=== PATIENT | male | born 1970 | race Caucasian/White ===

== ENCOUNTER 2021-03-25 20:58 | Inpatient (IN) | payer MEDICARE, MEDICAID ==
[~2021-03-25] VITALS: Ht 180.3 cm; Wt 104.5 kg
[~2021-03-25 20:58] MED LIST: etomidate 2mg/ml inj. ONE; rocuronium 10mg/ml inj IV ONE
[2021-03-25 22:00] LABS: EOSINOPHILS % (AUTO) 0 % (0-6); MEAN CORPUSCULAR HEMOGLOBIN 28.3 PG (27.0-31.0); MEAN PLATELET VOLUME 7.4 FL (7.4-10.4); MONOCYTES # (AUTO) 0.3 X10'3 (0-0.9); PLATELET COUNT 335 X10'3 (140-440)
[2021-03-25 22:02] LABS: BASOPHILS % (AUTO) 0.2 % (0-1); HEMATOCRIT 47.8 % (42.0-52.0); HEMOGLOBIN 15.9 g/dl (14.0-17.9); LYMPHOCYTES # (AUTO) 0.5 X10'3 (1.1-4.8); LYMPHOCYTES % (AUTO) 5.2 % (21-51); MEAN CORPUSCULAR HGB CONC 33.3 g/dL (33.0-36.5); MEAN CORPUSCULAR VOLUME 85.1 FL (78-98); NEUTROPHILS # (AUTO) 9.2 X10'3 (1.8-7.7); NEUTROPHILS % (AUTO) 91.6 % (42-75); RED BLOOD COUNT 5.62 X10'6 (4.70-6.10); RED CELL DISTRIBUTION WIDTH 13.9 % (11.5-14.5)
[2021-03-25 22:11] LABS: ALANINE AMINOTRANSFERASE 34 U/L (12-78); ALKALINE PHOSPHATASE 164 IU/L (46-116); ANION GAP 13 (8-16); ASPARTATE AMINO TRANSFERASE 36 U/L (10-37); BILIRUBIN,TOTAL 0.5 MG/DL (0.1-1.0); BLOOD UREA NITROGEN 20 MG/DL (7-18); BUN/CREATININE RATIO 17.2 (5.4-32.0); CALCIUM 9.5 MG/DL (8.5-10.1); CHLORIDE 100 MMOL/L (99-107); CREATININE 1.16 MG/DL (0.60-1.10); SODIUM 138 MMOL/L (135-145); TOTAL CARBON DIOXIDE 25.1 MMOL/L (24-32); eGFR 67 ML/MIN
[2021-03-25 22:32] LABS: ALBUMIN 1.8 G/DL (3.4-5.0); ALBUMIN/GLOBULIN RATIO 0.3 (1.1-1.5)
[2021-03-25 22:34] LABS: GLUCOSE 481 MG/DL (70-104)
[2021-03-25] MEDS ORDERED: insulin regular, human 10 units/0.1 ml syringe IV ONE (22:40)
[2021-03-25] MEDS ORDERED: magnesium 2GM in 50ml NS 50 ML IV PRN (23:45)
[2021-03-25] MEDS ORDERED: potassium Cl 40MEQ/1/2NS 520ml 520 ML IV PRN ×2 (23:45)
[2021-03-25] MEDS ORDERED: ondansetron/PF 4mg/2ml inj IV PRN (23:45)
[2021-03-25] MEDS ORDERED: magnesium Cl slow-release 64mg tablet PO PRN (23:45)
[2021-03-25] MEDS ORDERED: magnesium 4gm in 100ml NS 100 ML IV PRN (23:45)
[2021-03-25] MEDS ORDERED: potassium Cl 20 mEq SR tablet PO PRN ×2 (23:45)
[2021-03-25] MEDS ORDERED: acetaminophen 325mg tablet PO PRN (23:45)
[2021-03-25] MEDS ORDERED: mag hydrox/Alum hydrox/simeth 30ml oral suspension PO PRN (23:45)
[2021-03-25 23:51] LABS: PLATELET ESTIMATE NORMAL; TOTAL CELLS COUNTED 100
[2021-03-26] MEDS: normal saline 1000ml 1,000 ML IV SCH ×2 (00:12→21:09)
--- NOTE | 2021-03-26 00:22 | NUR ---
Patient in room ED 5. I have received report from JAYME Ignacio and had the opportunity to ask questions and assume patient care.
[2021-03-26 01:22] VITALS: BP 141/80
[2021-03-26] MEDS ORDERED: glucagon, human recombinant 1mg kit SUBCUT PRN (01:35)
[2021-03-26] MEDS ORDERED: MESSAGE TO PHARMACY PO ONE (01:35)
[2021-03-26] MEDS ORDERED: dextrose 50%-water 50ml dispensing syringe IV PRN ×2 (01:35)
[2021-03-26] MEDS ORDERED: dextrose ORAL solution 15 GM/59 ML bottle PO PRN ×2 (01:35)
--- NOTE | 2021-03-26 01:35 | NUR ---
Pt. was given Lantis after his blood sugar has been check since he came in the unit.Dr. Dash told me to do the protocol and Lantis 12 units hs.We will continue with pt. care.
[2021-03-26] MEDS: insulin Lispro (HumaLOG) vial - multi-dose SQ SCH ×4 (02:16→18:43)
[2021-03-26 03:01] LABS: HEMOGLOBIN A1C 13.3 % (4.5-6.2)
[2021-03-26] MEDS: K and/or MAG REPLACEMENT MC SCH ×2 (06:34→09:15)
--- NOTE | 2021-03-26 06:44 | NUR ---
Problems reprioritized. Patient report given, questions answered & plan of care reviewed with JAYME Monaco.
[2021-03-26] MEDS ORDERED: LISI20TA28 PO (07:07)
[2021-03-26] MEDS ORDERED: INSU100V9 SQ (07:08)
[2021-03-26] MEDS ORDERED: HUM7525 SQ (07:09)
[2021-03-26] MEDS ORDERED: CARV3.12 PO (07:09)
[2021-03-26] MEDS ORDERED: AMLO-140 PO (07:10)
[2021-03-26] MEDS ORDERED: ASPI-1264 PO (07:10)
[2021-03-26] MEDS ORDERED: ALBU0.63 IH (07:12)
[2021-03-26] MEDS ORDERED: HYDR-3972 PO (07:13)
[2021-03-26] MEDS ORDERED: TRAM50TA2 PO (07:15)
[2021-03-26] MEDS ORDERED: ATOR80TA PO (07:16)
[2021-03-26] MEDS ORDERED: HYDR12.55 PO (07:16)
--- NOTE | 2021-03-26 07:20 | NUR ---
Page Sent PAGER ID: [phone] MESSAGE: RE: Antonio Rasheed room 4006. May we have a sitter order please? Pt now has a sitter at bedside due to pulling lines/acute confusion
--- NOTE | 2021-03-26 07:33 | NUR ---
Page Sent PAGER ID: [phone] MESSAGE: re: jennifer Iqbal room 4006. Please address med rec for this pt.
--- NOTE | 2021-03-26 07:33 | NUR ---
Ordered speech evaluation due to patient's acute confusion and oxygen requirements.
[2021-03-26] MEDS ORDERED: enoxaparin 40mg/0.4ml syringe SUBCUT SCH (08:00)
[2021-03-26] MEDS: docusate sod 100mg capsule PO SCH ×2 (08:00→19:19)
--- NOTE | 2021-03-26 08:15 | NUR ---
Pt refusing bipap at this time. Sats between 79-83%. Will encourage proning.
[2021-03-26 08:45] LABS: BASOPHILS % (AUTO) 0.1 % (0-1); EOSINOPHILS % (AUTO) 0 % (0-6); HEMATOCRIT 41.5 % (42.0-52.0); HEMOGLOBIN 14.1 g/dl (14.0-17.9); LYMPHOCYTES # (AUTO) 0.7 X10'3 (1.1-4.8); LYMPHOCYTES % (AUTO) 5.9 % (21-51); MEAN CORPUSCULAR HEMOGLOBIN 28.3 PG (27.0-31.0); MEAN PLATELET VOLUME 7.4 FL (7.4-10.4); MONOCYTES # (AUTO) 0.6 X10'3 (0-0.9); MONOCYTES % (AUTO) 4.9 % (2-12); NEUTROPHILS # (AUTO) 11.3 X10'3 (1.8-7.7); NEUTROPHILS % (AUTO) 89.1 % (42-75); PLATELET COUNT 357 X10'3 (140-440); RED CELL DISTRIBUTION WIDTH 13.9 % (11.5-14.5); WHITE BLOOD COUNT 12.7 X10'3 (4.5-11.0)
--- NOTE | 2021-03-26 08:45 | NUR ---
Pt able to have some toast and water with no incidence of swallowing difficulty.
--- NOTE | 2021-03-26 08:51 | NUR ---
Diabetes consult: Pt admitted w/ increasing SOB and Covid w/ hx of DM per EMR. A1C 13.3 and Glu 388-481. Pt noted to have 60 units Lantus BID at home; also Dexamethasone daily. Pt w/ high oxygen demand, on 28L oxygen via HFNC, refusing BiPAP. Defer DM education at this time until pt more appropriate. Addendum: 03/26/21 at [address] Amended: Links added.
[2021-03-26] MEDS: dexamethasone 4mg tablet PO SCH ×2 (09:06→19:19)
[2021-03-26 09:28] LABS: ALBUMIN 1.6 G/DL (3.4-5.0); ANION GAP 10 (8-16); BLOOD UREA NITROGEN 24 MG/DL (7-18); BUN/CREATININE RATIO 24.7 (5.4-32.0); CALCIUM 8.9 MG/DL (8.5-10.1); CHLORIDE 102 MMOL/L (99-107); CREATININE 0.97 MG/DL (0.60-1.10); GLUCOSE 408 MG/DL (70-104); MAGNESIUM 2.5 MG/DL (1.5-2.4); POTASSIUM 4.5 MMOL/L (3.5-5.1); SODIUM 136 MMOL/L (135-145); TOTAL CARBON DIOXIDE 23.6 MMOL/L (24-32); eGFR 83 ML/MIN
--- NOTE | 2021-03-26 09:32 | NUR ---
Page Sent PAGER ID: [phone] MESSAGE: re: Antonioyoseph Iqbal room 4006. Can we give home inhaler and pain meds please? 03/15 pain and sats at 83%
[2021-03-26 10:00] VITALS: BP 148/83
[2021-03-26] MEDS ORDERED: AMLO5TAB PO (10:58)
[2021-03-26] MEDS ORDERED: ASPI-845 PO (10:58)
[2021-03-26] MEDS ORDERED: ALBU8HFA PO (10:58)
[2021-03-26] MEDS ORDERED: INSU100C4 SQ (10:58)
[2021-03-26 12:42] LABS: PLATELET ESTIMATE NORMAL; TOTAL CELLS COUNTED 100
[2021-03-26 12:44] LABS: TOXIC GRANULATION 1+
[2021-03-26 12:45] LABS: ANISOCYTOSIS FEW
[2021-03-26] MEDS: lisinopril 20mg tablet PO SCH (13:18)
[2021-03-26] MEDS: traMADol 50MG tablet PO PRN (13:58)
[2021-03-26 15:25] VITALS: BP 144/95
[2021-03-26] MEDS: carVEDilol 3.125mg tablet PO SCH (17:31)
[2021-03-26 18:00] VITALS: BP 144/88
--- NOTE | 2021-03-26 18:15 | NUR ---
Patient in room ORTHO 4006. I have received report from JAYME Monaco and had the opportunity to ask questions and assume patient care.
[2021-03-26] MEDS: atorvastatin 20mg tablet PO SCH (19:19)
[2021-03-26] MEDS ORDERED: insulin glargine (Lantus) pen - multi-dose SQ SCH (21:00)
[2021-03-26] MEDS: enoxaparin 40mg/0.4ml syringe SUBCUT SCH (21:07)
[2021-03-26] MEDS: CefTRIAXone 2gm/D5W 50ml BAG 50 ML IV SCH (21:25)
[2021-03-26 21:36] VITALS: BP 124/73
[2021-03-26] MEDS ORDERED: ringers solution, lactated 1000ml IV soln IV ONE (21:40)
[2021-03-26] MEDS ORDERED: ringers solution, lactated 500ml IV solution IV ONE (21:40)
[2021-03-26] MEDS ORDERED: insulin regular, human U-100 3ml vial - multi-dose IV ONE (21:40)
[2021-03-26] MEDS ORDERED: insulin glargine (Lantus) pen - multi-dose SQ ONE (21:40)
--- NOTE | 2021-03-26 22:30 | NUR ---
Pt.blood sugar was still high 425.Dr. Martinez gave me a order for LR bolus ,Humulin 8 units one time order and his home dose Lantis 30 units.We will continue with pt. care.
[2021-03-26] MEDS ORDERED: insulin regular, human 10 units/0.1 ml syringe IV ONE (22:35)
[2021-03-27 02:00] VITALS: BP 112/68
--- NOTE | 2021-03-27 02:00 | NUR ---
pt is actually on 80 liters oxygen via HF machine and 15 liters nrb mask per RT Addendum: 03/27/21 at 0236 by Lucia Andrade RN Amended: Links added.
--- NOTE | 2021-03-27 02:03 | NUR ---
RT was paged regarding his oxygen saturation dropping down to 75% on his pulse ox via the telemetry unit. He was on 60 liters oxygen and 100%fio2. RT bumped him up to 80 liters oxygen and still at 100%fio2 and his oxygen saturation is now 79-80% on pulse ox.
--- NOTE | 2021-03-27 06:19 | NUR ---
Problems reprioritized. Patient report given, questions answered & plan of care reviewed with JAYME Brady.
[2021-03-27] MEDS: aspirin 325mg tablet, delayed-release (Ecotrin) PO SCH (08:47)
[2021-03-27] MEDS: amLODIPine 5mg tablet PO SCH (08:52)
[2021-03-27] MEDS: dexamethasone 4mg tablet PO SCH ×2 (08:52→20:54)
[2021-03-27] MEDS: CefTRIAXone 2gm/D5W 50ml BAG 50 ML IV SCH (08:52)
[2021-03-27] MEDS: docusate sod 100mg capsule PO SCH ×2 (08:52→20:54)
[2021-03-27] MEDS: enoxaparin 40mg/0.4ml syringe SUBCUT SCH ×2 (08:53→20:54)
[2021-03-27] MEDS: lisinopril 20mg tablet PO SCH (08:56)
[2021-03-27] MEDS: carVEDilol 3.125mg tablet PO SCH ×2 (08:56→17:45)
[2021-03-27] MEDS: insulin Lispro (HumaLOG) vial - multi-dose SQ SCH ×3 (09:02→21:43)
[2021-03-27 09:04] LABS: BASOPHILS % (AUTO) 0.1 % (0-1); EOSINOPHILS % (AUTO) 0 % (0-6); HEMATOCRIT 38.8 % (42.0-52.0); LYMPHOCYTES # (AUTO) 0.7 X10'3 (1.1-4.8); LYMPHOCYTES % (AUTO) 5.7 % (21-51); MEAN CORPUSCULAR HEMOGLOBIN 28.1 PG (27.0-31.0); MEAN CORPUSCULAR HGB CONC 33.6 g/dL (33.0-36.5); MEAN CORPUSCULAR VOLUME 83.7 FL (78-98); MEAN PLATELET VOLUME 7.3 FL (7.4-10.4); MONOCYTES # (AUTO) 0.6 X10'3 (0-0.9); MONOCYTES % (AUTO) 5.3 % (2-12); NEUTROPHILS # (AUTO) 10.6 X10'3 (1.8-7.7); NEUTROPHILS % (AUTO) 88.9 % (42-75); PLATELET COUNT 381 X10'3 (140-440); RED BLOOD COUNT 4.64 X10'6 (4.70-6.10); RED CELL DISTRIBUTION WIDTH 13.3 % (11.5-14.5); WHITE BLOOD COUNT 11.9 X10'3 (4.5-11.0)
[2021-03-27] MEDS: insulin glargine (Lantus) pen - multi-dose SQ SCH ×2 (09:04→21:40)
[2021-03-27 09:29] LABS: ALBUMIN 1.6 G/DL (3.4-5.0); ANION GAP 9 (8-16); BLOOD UREA NITROGEN 28 MG/DL (7-18); BUN/CREATININE RATIO 26.7 (5.4-32.0); C-REACTIVE PROTEIN 2.29 MG/DL (0.0-0.5); CALCIUM 8.1 MG/DL (8.5-10.1); CHLORIDE 101 MMOL/L (99-107); CREATININE 1.05 MG/DL (0.60-1.10); GLUCOSE 427 MG/DL (70-104); MAGNESIUM 2.3 MG/DL (1.5-2.4); SODIUM 137 MMOL/L (135-145); TOTAL CARBON DIOXIDE 26.6 MMOL/L (24-32); eGFR 75 ML/MIN
[2021-03-27 10:00] VITALS: BP 106/70
[2021-03-27 10:21] LABS: D-DIMER 2.13 MG/L FEU (0-0.50)
[2021-03-27 10:30] LABS: PLATELET ESTIMATE NORMAL; TOTAL CELLS COUNTED 100
[2021-03-27 10:31] LABS: BURR CELLS FEW
[2021-03-27] MEDS: K and/or MAG REPLACEMENT MC SCH ×2 (11:18→20:00)
[2021-03-27 18:00] VITALS: BP 112/71
[2021-03-27] MEDS: atorvastatin 20mg tablet PO SCH (20:53)
[2021-03-27] MEDS: lactobacillus rhamnosus 10,000 MMU CELLS/CAPSULE PO SCH (20:54)
[2021-03-27 22:00] VITALS: BP 114/67
[2021-03-28] MEDS: normal saline 1000ml 1,000 ML IV SCH (00:13)
[2021-03-28 02:00] VITALS: BP 119/69
[2021-03-28] MEDS: docusate sod 100mg capsule PO SCH ×2 (08:00→19:46)
[2021-03-28 08:21] LABS: BASOPHILS % (AUTO) 0 % (0-1); EOSINOPHILS % (AUTO) 0 % (0-6); HEMATOCRIT 36.7 % (42.0-52.0); HEMOGLOBIN 12.4 g/dl (14.0-17.9); LYMPHOCYTES # (AUTO) 0.6 X10'3 (1.1-4.8); LYMPHOCYTES % (AUTO) 4.5 % (21-51); MEAN CORPUSCULAR HEMOGLOBIN 28.2 PG (27.0-31.0); MEAN CORPUSCULAR HGB CONC 33.8 g/dL (33.0-36.5); MEAN CORPUSCULAR VOLUME 83.5 FL (78-98); MEAN PLATELET VOLUME 7.3 FL (7.4-10.4); MONOCYTES # (AUTO) 0.6 X10'3 (0-0.9); MONOCYTES % (AUTO) 4.9 % (2-12); NEUTROPHILS # (AUTO) 11.6 X10'3 (1.8-7.7); NEUTROPHILS % (AUTO) 90.6 % (42-75); PLATELET COUNT 342 X10'3 (140-440); RED CELL DISTRIBUTION WIDTH 13.4 % (11.5-14.5); WHITE BLOOD COUNT 12.8 X10'3 (4.5-11.0)
[2021-03-28] MEDS: enoxaparin 40mg/0.4ml syringe SUBCUT SCH ×2 (08:46→19:49)
[2021-03-28] MEDS: CefTRIAXone 2gm/D5W 50ml BAG 50 ML IV SCH (08:46)
[2021-03-28] MEDS: carVEDilol 3.125mg tablet PO SCH ×2 (08:47→17:52)
[2021-03-28] MEDS: dexamethasone 4mg tablet PO SCH ×2 (08:47→19:47)
[2021-03-28] MEDS: aspirin 325mg tablet, delayed-release (Ecotrin) PO SCH (08:47)
[2021-03-28] MEDS: lisinopril 20mg tablet PO SCH (08:47)
[2021-03-28] MEDS: amLODIPine 5mg tablet PO SCH (08:47)
[2021-03-28] MEDS: lactobacillus rhamnosus 10,000 MMU CELLS/CAPSULE PO SCH ×2 (08:48→19:47)
[2021-03-28 08:54] LABS: BLOOD UREA NITROGEN 31 MG/DL (7-18); BUN/CREATININE RATIO 34.4 (5.4-32.0); C-REACTIVE PROTEIN 1.06 MG/DL (0.0-0.5); CHLORIDE 102 MMOL/L (99-107); GLUCOSE 353 MG/DL (70-104); POTASSIUM 4.7 MMOL/L (3.5-5.1); eGFR 90 ML/MIN
[2021-03-28 08:56] LABS: ALBUMIN 1.5 G/DL (3.4-5.0); ANION GAP 9 (8-16); CALCIUM 8.2 MG/DL (8.5-10.1); MAGNESIUM 2.5 MG/DL (1.5-2.4); SODIUM 135 MMOL/L (135-145); TOTAL CARBON DIOXIDE 24.2 MMOL/L (24-32)
[2021-03-28 09:03] LABS: TOTAL CELLS COUNTED 100
[2021-03-28 09:04] LABS: MICROCYTOSIS 1+; PLATELET ESTIMATE NORMAL
[2021-03-28 09:10] LABS: D-DIMER 1.99 MG/L FEU (0-0.50)
[2021-03-28] MEDS: insulin glargine (Lantus) pen - multi-dose SQ SCH ×2 (09:39→22:43)
[2021-03-28] MEDS: insulin Lispro (HumaLOG) vial - multi-dose SQ SCH ×4 (09:40→22:44)
[2021-03-28] MEDS: K and/or MAG REPLACEMENT MC SCH ×2 (09:51→20:00)
[2021-03-28 10:00] VITALS: BP 147/83
[2021-03-28 14:00] VITALS: BP 124/77
--- NOTE | 2021-03-28 17:24 | NUR ---
pt rested in room throughout shift. During AM assessment pt stated suicidal ideations. MD made aware and patient placed with sitter for safety. Sitter remained with pt throughout the day. During Evening assessment pt complained of c/p and back pain. EKG performed and results of EKG interpreted by ER , Pts attending MD Contreras made aware of patients complaint. Stat Troponin lab ordered and drawn for patient, and sublingual Nitroglycerin PRN ordered for pt. Will continue to monitor patient and will notify MD with any changes in patients conditions. Addendum: 03/28/21 at 1759 by Caitlyn Painting RN Troponin resulted negative <0.04.
[2021-03-28] MEDS ORDERED: nitroGLYCERIN 0.4mg SUBLingual tab SL PRN (17:35)
[2021-03-28 18:00] VITALS: BP 122/71
[2021-03-28] MEDS: atorvastatin 20mg tablet PO SCH (21:00)
[2021-03-28 22:00] VITALS: BP 139/77
[2021-03-28] MEDS: traMADol 50MG tablet PO PRN (22:45)
--- NOTE | 2021-03-29 01:30 | NUR ---
LOW SATURATION NOTED 82% WITH INCREASED RESP RATE OF 28. NO SIGNS OF DISTRESS NOTED. REPARATORY NOTIFIED FOR TREATMENT.
[2021-03-29] MEDS: ipratropium/albuterol 3ml nebule NEB PRN (01:49)
--- NOTE | 2021-03-29 02:19 | NUR ---
Pt post respiratory treatment , saturating 88% with resp rate 22; continue to monitor pt's respiratory status.
[2021-03-29 02:22] VITALS: BP 127/70
[2021-03-29] MEDS: normal saline 1000ml 1,000 ML IV SCH (03:53)
[2021-03-29 03:59] LABS: CLARITY,URINE CLEAR (Clear); COLOR,URINE YELLOW (Yellow); GLUCOSE, URINE >=1000 mg/dl (Neg); KETONES,URINE NEGATIVE (Neg); LEUKOCYTE ESTERASE ,URINE NEGATIVE (Neg); NITRITES, URINE NEGATIVE (Neg); OCCULT BLOOD,URINE NEGATIVE (Neg); PROTEIN,URINE >=300 mg/dl (Neg); UA COLLECTION TYPE NON-SPECIFIED; UROBILINOGEN,URINE 0.2 E.U/dL (0.2-1.0)
[2021-03-29 04:12] LABS: BACTERIA,URINE NONE SEEN /HPF (Neg); MUCUS STRANDS MANY /LPF (Neg); RBC,URINE NONE SEEN /HPF (0-2); SQUAMOUS EPITHELIAL CELL,UR FEW /LPF (FEW); WBC,URINE 0-4 /HPF (0-4); YEAST FEW /HPF (NEGATIVE)
[2021-03-29 04:13] LABS: HYALINE CASTS 0-3 /LPF (NEGATIVE)
[2021-03-29 04:14] LABS: CAL OXALATE CRYSTALS 1+ /HPF (NEGATIVE)
[2021-03-29 05:00] VITALS: BP 133/73
--- NOTE | 2021-03-29 06:10 | NUR ---
Problems reprioritized. Patient report given, questions answered & plan of care reviewed with Ms. Brady.
[2021-03-29 08:30] LABS: BASOPHILS % (AUTO) 0.2 % (0-1); EOSINOPHILS % (AUTO) 0 % (0-6); HEMATOCRIT 39.7 % (42.0-52.0); HEMOGLOBIN 13.5 g/dl (14.0-17.9); LYMPHOCYTES # (AUTO) 0.5 X10'3 (1.1-4.8); LYMPHOCYTES % (AUTO) 3.5 % (21-51); MEAN CORPUSCULAR HEMOGLOBIN 28.3 PG (27.0-31.0); MEAN CORPUSCULAR VOLUME 83.3 FL (78-98); MEAN PLATELET VOLUME 7.1 FL (7.4-10.4); MONOCYTES # (AUTO) 0.7 X10'3 (0-0.9); NEUTROPHILS # (AUTO) 12.2 X10'3 (1.8-7.7); NEUTROPHILS % (AUTO) 91.3 % (42-75); PLATELET COUNT 386 X10'3 (140-440); RED BLOOD COUNT 4.76 X10'6 (4.70-6.10); RED CELL DISTRIBUTION WIDTH 13.5 % (11.5-14.5); WHITE BLOOD COUNT 13.4 X10'3 (4.5-11.0)
[2021-03-29 08:44] LABS: ALBUMIN 1.8 G/DL (3.4-5.0); ANION GAP 8 (8-16); BLOOD UREA NITROGEN 27 MG/DL (7-18); BUN/CREATININE RATIO 26.7 (5.4-32.0); C-REACTIVE PROTEIN 0.57 MG/DL (0.0-0.5); CALCIUM 8.2 MG/DL (8.5-10.1); CHLORIDE 103 MMOL/L (99-107); CREATININE 1.01 MG/DL (0.60-1.10); GLUCOSE 268 MG/DL (70-104); MAGNESIUM 2.1 MG/DL (1.5-2.4); POTASSIUM 4.2 MMOL/L (3.5-5.1); SODIUM 136 MMOL/L (135-145); TOTAL CARBON DIOXIDE 25.2 MMOL/L (24-32); eGFR 79 ML/MIN
--- NOTE | 2021-03-29 08:55 | NUR ---
Initial: Pt admitted w/ acute respiratory failure secondary to covid per EMR. Pt currently w/ 70L oxygen requirement per documentation. Pt still able to eat well on SB6/CCHO/Heart Healthy diet, avg intake 73% x 7 meals likely meeting minimum nutrient needs at this time. LBM 03/27 receiving routine colace. No nutrition intervention implemented at this time, will continue to monitor. Recs: 1. Continue SB6/CCHO/Heart Healthy diet as tolerated per CLAIMS SUPERVISOR recs 2. Monitor need for ONS if PO declines 3. Bowel care per rx 4. Scaled wt this admit, subsequent weekly wts Addendum: 03/29/21 at [address] Amended: Links added.
[2021-03-29] MEDS: insulin glargine (Lantus) pen - multi-dose SQ SCH ×2 (09:10→20:57)
[2021-03-29] MEDS: CefTRIAXone 2gm/D5W 50ml BAG 50 ML IV SCH (09:21)
[2021-03-29] MEDS: enoxaparin 40mg/0.4ml syringe SUBCUT SCH (09:21)
[2021-03-29] MEDS: insulin Lispro (HumaLOG) vial - multi-dose SQ SCH ×3 (09:21→18:53)
[2021-03-29] MEDS: lactobacillus rhamnosus 10,000 MMU CELLS/CAPSULE PO SCH ×2 (09:22→19:29)
[2021-03-29] MEDS: amLODIPine 5mg tablet PO SCH (09:22)
[2021-03-29] MEDS: aspirin 325mg tablet, delayed-release (Ecotrin) PO SCH (09:22)
[2021-03-29] MEDS: carVEDilol 3.125mg tablet PO SCH ×2 (09:22→16:44)
[2021-03-29] MEDS: dexamethasone 4mg tablet PO SCH ×2 (09:23→19:30)
[2021-03-29] MEDS: lisinopril 20mg tablet PO SCH (09:23)
[2021-03-29] MEDS: docusate sod 100mg capsule PO SCH ×2 (09:23→19:30)
[2021-03-29 10:00] VITALS: BP 137/79
[2021-03-29] MEDS: K and/or MAG REPLACEMENT MC SCH ×2 (11:00→20:00)
[2021-03-29 11:09] LABS: PLATELET ESTIMATE NORMAL; TOTAL CELLS COUNTED 100
[2021-03-29] MEDS: traMADol 50MG tablet PO PRN (16:47)
[2021-03-29 18:00] VITALS: BP 139/79
--- NOTE | 2021-03-29 18:30 | NUR ---
Patient in room ORTHO 4006. I have received report from JAYME Paris and had the opportunity to ask questions and assume patient care. Patient laying in bed, no obvious distress.
[2021-03-29] MEDS: atorvastatin 20mg tablet PO SCH (19:29)
[2021-03-29] MEDS: enoxaparin 60mg/0.6ml syringe SUBCUT SCH (19:32)
[2021-03-29 22:00] VITALS: BP 127/68
--- NOTE | 2021-03-30 00:27 | NUR ---
Loly cld for update, she was wondering if he is stable enough to come home where they have oxygen support and can care for him there. I explained that he is not stable with his O2 stats, he is resistant to care. He won't use Bipap or reposition himself to prone of side laying. She says he takes [place] QID and wonders if he is withdrawing??? I advised every time I ask if he is in pain, he says no. I encouraged her to call in the morning after 0800 and talk with the hospitalist in charge of his care. She will call then.
[2021-03-30 02:00] VITALS: BP 123/69
[2021-03-30 05:00] VITALS: BP 106/68
--- NOTE | 2021-03-30 06:08 | NUR ---
Problems reprioritized. Patient report given, questions answered & plan of care reviewed with JAYME Paris.
[2021-03-30 07:15] LABS: BASOPHILS % (AUTO) 0 % (0-1); EOSINOPHILS % (AUTO) 0.1 % (0-6); HEMOGLOBIN 13.1 g/dl (14.0-17.9); LYMPHOCYTES # (AUTO) 0.4 X10'3 (1.1-4.8); LYMPHOCYTES % (AUTO) 3.2 % (21-51); MEAN CORPUSCULAR HEMOGLOBIN 28.3 PG (27.0-31.0); MEAN CORPUSCULAR HGB CONC 33.8 g/dL (33.0-36.5); MEAN CORPUSCULAR VOLUME 83.7 FL (78-98); MEAN PLATELET VOLUME 7.1 FL (7.4-10.4); MONOCYTES # (AUTO) 0.5 X10'3 (0-0.9); MONOCYTES % (AUTO) 3.9 % (2-12); NEUTROPHILS # (AUTO) 10.9 X10'3 (1.8-7.7); NEUTROPHILS % (AUTO) 92.8 % (42-75); PLATELET COUNT 353 X10'3 (140-440); RED BLOOD COUNT 4.65 X10'6 (4.70-6.10); RED CELL DISTRIBUTION WIDTH 13.6 % (11.5-14.5); WHITE BLOOD COUNT 11.8 X10'3 (4.5-11.0)
[2021-03-30 07:29] LABS: D-DIMER 6.27 MG/L FEU (0-0.50)
[2021-03-30 07:52] LABS: ALBUMIN 1.7 G/DL (3.4-5.0); ANION GAP 7 (8-16); BLOOD UREA NITROGEN 22 MG/DL (7-18); BUN/CREATININE RATIO 29.3 (5.4-32.0); C-REACTIVE PROTEIN 0.45 MG/DL (0.0-0.5); CALCIUM 8.2 MG/DL (8.5-10.1); CHLORIDE 105 MMOL/L (99-107); CREATININE 0.75 MG/DL (0.60-1.10); GLUCOSE 136 MG/DL (70-104); MAGNESIUM 2.1 MG/DL (1.5-2.4); POTASSIUM 4.4 MMOL/L (3.5-5.1); SODIUM 136 MMOL/L (135-145); TOTAL CARBON DIOXIDE 24.5 MMOL/L (24-32); eGFR > 90 ML/MIN
[2021-03-30] MEDS: insulin glargine (Lantus) pen - multi-dose SQ SCH (09:01)
[2021-03-30] MEDS: insulin Lispro (HumaLOG) vial - multi-dose SQ SCH ×3 (09:02→22:50)
[2021-03-30] MEDS: aspirin 325mg tablet, delayed-release (Ecotrin) PO SCH (09:04)
[2021-03-30] MEDS: lisinopril 20mg tablet PO SCH (09:06)
[2021-03-30] MEDS: amLODIPine 5mg tablet PO SCH (09:07)
[2021-03-30] MEDS: lactobacillus rhamnosus 10,000 MMU CELLS/CAPSULE PO SCH ×2 (09:07→20:29)
[2021-03-30] MEDS: dexamethasone 4mg tablet PO SCH (09:07)
[2021-03-30] MEDS: enoxaparin 60mg/0.6ml syringe SUBCUT SCH ×2 (09:08→09:17)
[2021-03-30] MEDS: docusate sod 100mg capsule PO SCH ×2 (09:08→20:00)
[2021-03-30] MEDS: CefTRIAXone 2gm/D5W 50ml BAG 50 ML IV SCH (09:11)
[2021-03-30] MEDS: carVEDilol 3.125mg tablet PO SCH ×2 (09:11→17:07)
[2021-03-30] MEDS: K and/or MAG REPLACEMENT MC SCH ×2 (09:20→20:00)
--- NOTE | 2021-03-30 09:22 | NUR ---
SPOKE WITH DR TORIBIO PER WAQAS MEZA, PATIENT DOSE NOT NEED SITTER AND 179, FOR HE IS NOT SUICIDAL. ORDERS DC'D.
--- NOTE | 2021-03-30 09:22 | NUR ---
PT RESTED IN ROOM WITH SITTER CLOSE BY. PT REFUSED AM ASSESSMENT AND REFUSED AM LOVENOX SUBQ INJECTION. PT EXPLAINED THE NEED FOR INJECTION AND STATES THAT HE DOES NOT WANT OR NEED IT. MD NOTIFIED OF REFUSAL. WILL CONTINUE TO MONITOR PATIENT AND WILL NOTIFY MD WITH ANY CHANGES IN PATIENTS CONDITION.
--- NOTE | 2021-03-30 09:46 | NUR ---
Spoke with Alivia Watt and she said patient needs sitter and 1799 per Erick Garzon.
[2021-03-30 10:00] VITALS: BP_SYST 103; BP_SYST 129; BP_DIAS 39; BP_DIAS 78
[2021-03-30] MEDS: ESCITALOPRAM OXALATE 5 MG TABLET PO SCH (10:23)
[2021-03-30 15:00] VITALS: BP 148/80
[2021-03-30 20:15] VITALS: BP 163/77
[2021-03-30] MEDS: enoxaparin 30mg/0.3ml syringe SUBCUT SCH (20:28)
[2021-03-30] MEDS: enoxaparin 80mg/0.8ml syringe SUBCUT SCH (20:28)
[2021-03-30] MEDS: DEXAMETHASONE 6 MG TABLET PO SCH (20:29)
[2021-03-30] MEDS: atorvastatin 20mg tablet PO SCH (20:29)
[2021-03-31] MEDS: insulin glargine (Lantus) pen - multi-dose SQ SCH ×3 (00:05→19:44)
--- NOTE | 2021-03-31 06:25 | NUR ---
Patient in room ORTHO 4006. I have received report from Serge DELACRUZ and had the opportunity to ask questions and assume patient care.
--- NOTE | 2021-03-31 06:35 | NUR ---
Nutrition intake not done on noc shift
--- NOTE | 2021-03-31 06:55 | NUR ---
Received call from [employer] patient was 80% on his sp02, good pleth and waveform, upon assessing patient he is resting comfortably. Placed page to respiratory therapy.
[2021-03-31] MEDS: CefTRIAXone 2gm/D5W 50ml BAG 50 ML IV SCH (07:04)
[2021-03-31] MEDS: enoxaparin 30mg/0.3ml syringe SUBCUT SCH ×2 (07:11→19:45)
[2021-03-31] MEDS: DEXAMETHASONE 6 MG TABLET PO SCH ×2 (07:11→19:47)
[2021-03-31] MEDS: enoxaparin 80mg/0.8ml syringe SUBCUT SCH ×2 (07:11→19:46)
[2021-03-31] MEDS: ESCITALOPRAM OXALATE 5 MG TABLET PO SCH (07:11)
[2021-03-31] MEDS: aspirin 325mg tablet, delayed-release (Ecotrin) PO SCH (07:11)
[2021-03-31] MEDS: lisinopril 20mg tablet PO SCH (07:12)
[2021-03-31] MEDS: amLODIPine 5mg tablet PO SCH (07:12)
[2021-03-31] MEDS: lactobacillus rhamnosus 10,000 MMU CELLS/CAPSULE PO SCH ×2 (07:12→19:47)
[2021-03-31] MEDS: carVEDilol 3.125mg tablet PO SCH ×2 (07:12→17:06)
--- NOTE | 2021-03-31 07:16 | NUR ---
Patient is being very noncompliant this morning, does not want anyone to help him and is continuing to say that he wants to go home, refused AM labs despite education about the importance of doing them. When trying to make conversation with patient he shuts it down and is saying that he is "tired of doing this tired of being poked and proded and wants to go home where he has things set up there". Educated patient on the fact that he is on a high amount of oxygen at this given time and can not be without it or he would likely not survive he states "he is tired of hearing that and that it is bullshit".
[2021-03-31] MEDS: ipratropium/albuterol 3ml nebule NEB PRN (07:31)
[2021-03-31] MEDS: docusate sod 100mg capsule PO SCH ×2 (08:00→19:47)
[2021-03-31] MEDS: K and/or MAG REPLACEMENT MC SCH ×2 (08:00→19:40)
[2021-03-31] MEDS: insulin Lispro (HumaLOG) vial - multi-dose SQ SCH ×2 (09:03→13:39)
[2021-03-31 09:30] LABS: C-REACTIVE PROTEIN 2.22 MG/DL (0.0-0.5)
[2021-03-31 09:41] LABS: D-DIMER 10.71 MG/L FEU (0-0.50)
--- NOTE | 2021-03-31 09:48 | NUR ---
PAGER ID: [phone] MESSAGE: [phone], Rasheed, patient is refusing almost all care this morning stating he wants to go home. I need an MD to come speak to him regarding his care, he is a full code and refusing bipap and cpap. Sp02 low 80s most of the morning. Karla [phone]
--- NOTE | 2021-03-31 09:56 | NUR ---
Spoke to hospitalist, ordered chest x-ray, abg and urinalysis. Patient has been resistive to care all morning, borderline combative with me and not allowing me to care for him in the way that he needs at this given time. Respiratory paged for blood gas.
--- NOTE | 2021-03-31 11:02 | NUR ---
Spoke to icu charge master specialist regarding patient. She stated that if the hospitalist wants the dock builder to consult they need to do it themselves, she is going to make the dock builder aware however. Reccomends getting blood gas, which is happening now.
--- NOTE | 2021-03-31 11:03 | NUR ---
Went to lobby to speak to and give update as patient called her this morning confused and making no sense, updated her on patients status and the steps that i am taking regarding his care.
[2021-03-31 11:08] VITALS: BP 166/79
--- NOTE | 2021-03-31 11:08 | NUR ---
Patient is on 80 liters high flow with 15 liters nonrebreather also, not able to document correctly in vital signs
--- NOTE | 2021-03-31 11:12 | NUR ---
PAGER ID: [phone] MESSAGE: [phone] Rasheed systolic blood pressure is 166, no PRNs. Karla [phone]
--- NOTE | 2021-03-31 11:16 | NUR ---
Received call from telemetry, patient is 60% sp02 and will not allow me to help him with his nonrebreather. Getting agitated with me for trying to help him.
--- NOTE | 2021-03-31 11:18 | NUR ---
PAGER ID: [phone] MESSAGE: [phone] Rasheed, I need Ativan or morphine for him, something IV he is agitated and being resistive to care with me and he is 70% while trying to go pee and not letting me help him. Will not take oral meds from me. Karla [phone]
[2021-03-31 11:20] LABS: ABG BASE EXCESS 1.3 mmol/L (-2.0-2.0); ABG HCO3 24.2 mmol/L (22.0-26.0); ABG OXYGEN SATURATION 84.9 % (94-97); ABG PCO2 (T) 33.7 mmHg (35.0-48.0); ABG PO2 (T) 46.4 mmHg (75.0-100.0); ALLEN'S TEST POSITIVE; FCOHb 0.2 % (0.0-3.9); FLOW 80 L/min; FMetHb 0.3 % (0.0-1.5); FO2Hb 84.5 % (94-97); TOTAL HEMOGLOBIN 15.5 G/dl (14.0-18.0)
--- NOTE | 2021-03-31 11:37 | NUR ---
patient report recieved from Karla DELACRUZ
--- NOTE | 2021-03-31 11:40 | NUR ---
Need repeat ABG in an hour and a half
--- NOTE | 2021-03-31 11:40 | NUR ---
Patient is refusing care from this RN, care transferred to [facility] RN. Called and spoke with ICU charge poster updated on status and the fact that patient is being placed on bipap.
[2021-03-31] MEDS: ALPRAZolam 0.25mg tablet PO PRN ×2 (11:55→20:26)
[2021-03-31 11:58] LABS: CLARITY,URINE CLEAR (Clear); COLOR,URINE YELLOW (Yellow); GLUCOSE, URINE 250 mg/dl (Neg); KETONES,URINE NEGATIVE (Neg); OCCULT BLOOD,URINE NEGATIVE (Neg); PH,URINE 6.5 (4.8-8.0); PROTEIN,URINE 100 mg/dl (Neg); UA COLLECTION TYPE NON-SPECIFIED
[2021-03-31 11:59] LABS: LEUKOCYTE ESTERASE ,URINE NEGATIVE (Neg); NITRITES, URINE NEGATIVE (Neg); UROBILINOGEN,URINE 0.2 E.U/dL (0.2-1.0)
[2021-03-31 12:08] LABS: BACTERIA,URINE FEW /HPF (Neg); MUCUS STRANDS FEW /LPF (Neg); RBC,URINE 0-2 /HPF (0-2); SQUAMOUS EPITHELIAL CELL,UR FEW /LPF (FEW); WBC,URINE 0-4 /HPF (0-4)
--- NOTE | 2021-03-31 12:21 | NUR ---
documentation: I have reviewed and agree with all interventions, assessments performed and documented by Karla DELACRUZ.
--- NOTE | 2021-03-31 12:51 | NUR ---
PAGER ID: [phone] MESSAGE: [phone] Iqbal name karine phone number [phone]
[2021-03-31 14:00] VITALS: BP 153/81
[2021-03-31 16:17] LABS: ABG HCO3 27.2 mmol/L (22.0-26.0); ABG OXYGEN SATURATION 92.5 % (94-97); ABG PCO2 (T) 39.9 mmHg (35.0-48.0); ABG PO2 (T) 63.2 mmHg (75.0-100.0); ALLEN'S TEST POSITIVE; FCOHb 0.2 % (0.0-3.9); FMetHb 0.3 % (0.0-1.5); TOTAL HEMOGLOBIN 14.9 G/dl (14.0-18.0)
--- NOTE | 2021-03-31 18:30 | NUR ---
Took over care of Pt from previous nurse. Pt being argumentative about not being able to eat. Pt stated that he wanted to leave. I offered to help him eat the food his brought and he declined stating he just wanted to go. Talked to Pt's Loly and she expressed how difficult he is being and is calling and texting while she is at work. I told Loly I offered to help him eat the food brought. She stated that she would not be coming to get him and he needs to stay here and to tell him to listen to the medical team. Pt eventually decided to eat and tramadol and xanax were given. Sitter still in the room monitoring O2 saturations.
--- NOTE | 2021-03-31 18:57 | NUR ---
Patient report given to Landon DELACRUZ
[2021-03-31] MEDS: traMADol 50MG tablet PO PRN (19:47)
[2021-03-31] MEDS: atorvastatin 20mg tablet PO SCH (19:49)
[2021-03-31 22:00] VITALS: BP 150/94
[2021-03-31] MEDS: normal saline 1000ml 1,000 ML IV SCH (23:45)
[2021-04-01] VITALS (8 sets, daily range): BP systolic 119–164; BP diastolic 71–90
--- NOTE | 2021-04-01 06:25 | NUR ---
Problems reprioritized. Patient report given, questions answered & plan of care reviewed with Carola DELACRUZ .
[2021-04-01 07:22] LABS: D-DIMER 4.38 MG/L FEU (0-0.50)
[2021-04-01] MEDS: carVEDilol 3.125mg tablet PO SCH ×2 (07:30→18:06)
[2021-04-01 07:43] LABS: C-REACTIVE PROTEIN 6.76 MG/DL (0.0-0.5); MAGNESIUM 2.1 MG/DL (1.5-2.4)
--- NOTE | 2021-04-01 07:51 | NUR ---
paged Dr. Dash regarding pt desating and refusal of cpap/bipap. awaiting to hear back from Dr. Dash. Addendum: 04/01/21 at 0753 by Leandra Sheikh RT Amended: Links added.
[2021-04-01] MEDS: ESCITALOPRAM OXALATE 5 MG TABLET PO SCH (08:00)
[2021-04-01] MEDS: aspirin 325mg tablet, delayed-release (Ecotrin) PO SCH (08:00)
[2021-04-01] MEDS: lisinopril 20mg tablet PO SCH (08:00)
[2021-04-01] MEDS: amLODIPine 5mg tablet PO SCH (08:00)
[2021-04-01] MEDS: lactobacillus rhamnosus 10,000 MMU CELLS/CAPSULE PO SCH ×2 (08:00→20:00)
[2021-04-01] MEDS: DEXAMETHASONE 6 MG TABLET PO SCH (08:00)
[2021-04-01] MEDS: docusate sod 100mg capsule PO SCH ×3 (08:00→22:13)
[2021-04-01] MEDS: insulin glargine (Lantus) pen - multi-dose SQ SCH ×2 (08:00→20:00)
--- NOTE | 2021-04-01 08:23 | NUR ---
Sadi called the unit around 0730 with details o2 sats 65%. Patient was reposition to high fowlers and sats increased to 82%. RT and MD were paged. Patient refusing to wear Bipap states that his breathing is fine and to leave him alone. MD called back and was advised patients trending saturation levels which fluctuates from high 70's to low 80's. MD requesting 's phone number and stated she will be calling ICU. Patient currently sating 82% on high fowlers with sitter at bedside.
[2021-04-01] MEDS: enoxaparin 80mg/0.8ml syringe SUBCUT SCH ×2 (10:43→22:12)
[2021-04-01] MEDS: enoxaparin 30mg/0.3ml syringe SUBCUT SCH ×2 (10:45→22:12)
[2021-04-01] MEDS: CefTRIAXone 2gm/D5W 50ml BAG 50 ML IV SCH (10:45)
--- NOTE | 2021-04-01 11:52 | NUR ---
Patient is on high fowlers on high flow nc and non rebreather 02 sats 86%. MD at bedside no new orders.
--- NOTE | 2021-04-01 13:00 | NUR ---
Patient refusing medications and accuchecks. notified
--- NOTE | 2021-04-01 13:23 | NUR ---
Loly's mother called upset. She states that her daughter received devastating news and is upset. She was advised information can only be provided to the next of kin. I called Loly and advised patient's saturations and his refusal of bipap and medications. Patient is awaiting ICU bed at this time.
--- NOTE | 2021-04-01 13:43 | NUR ---
Per , patient to receive no Xanax just one time order of Tramadol 15mg IV. Addendum: 04/01/21 at 1358 by Carola Painting RN Toradol 15mg
--- NOTE | 2021-04-01 14:40 | NUR ---
Patient is now on Bipap FI02 100% o2 sats 89%. Tolerating well and he is compliant.
--- NOTE | 2021-04-01 14:49 | NUR ---
Loly was called and given update on patient's status.He consented to bipap and awaiting ICU bed.
[2021-04-01] MEDS: methylPREDNISolone sod succ/PF 40mg inj. IV SCH (14:54)
[2021-04-01] MEDS ORDERED: dextrose 50%-water 50ml dispensing syringe IV ONE (18:00)
[2021-04-01] MEDS: dextrose 5%-water 1,000 ML IV SCH (18:06)
[2021-04-01] MEDS: K and/or MAG REPLACEMENT MC SCH ×2 (18:45→20:00)
--- NOTE | 2021-04-01 18:53 | NUR ---
1830:Patient in room CICU 2009. I have received report from Jonah DELACRUZ and had the opportunity to ask questions and assume patient care. Addendum: 04/01/21 at 1853 by Luciana Damon RN Amended: Links added.
[2021-04-01] MEDS: dexmedetomidin/NS 400mcg/100ml 100 ML IV SCH (19:22)
[2021-04-01 19:31] LABS: ALANINE AMINOTRANSFERASE 30 U/L (12-78); ALBUMIN 1.9 G/DL (3.4-5.0); ALBUMIN/GLOBULIN RATIO 0.4 (1.1-1.5); ALKALINE PHOSPHATASE 145 IU/L (46-116); ANION GAP 13 (8-16); ASPARTATE AMINO TRANSFERASE 34 U/L (10-37); BILIRUBIN,TOTAL 0.4 MG/DL (0.1-1.0); BLOOD UREA NITROGEN 19 MG/DL (7-18); BUN/CREATININE RATIO 26.4 (5.4-32.0); CALCIUM 8.5 MG/DL (8.5-10.1); CHLORIDE 104 MMOL/L (99-107); CREATININE 0.72 MG/DL (0.60-1.10); GLUCOSE 54 MG/DL (70-104); PHOSPHORUS 4.2 MG/DL (2.3-4.5); POTASSIUM 4.4 MMOL/L (3.5-5.1); SODIUM 141 MMOL/L (135-145); TOTAL CARBON DIOXIDE 24.5 MMOL/L (24-32); TOTAL PROTEIN 7.2 G/DL (6.4-8.2); eGFR > 90 ML/MIN
[2021-04-01] MEDS: levoFLOXACIN-Levaquin 750MG/D5 150 ML IV SCH (19:47)
[2021-04-01] MEDS: atorvastatin 20mg tablet PO SCH ×2 (21:00→22:13)
[2021-04-01] MEDS: ALPRAZolam 0.25mg tablet PO PRN (22:11)
[2021-04-02] VITALS (22 sets, daily range): BP systolic 103–141; BP diastolic 57–87
[2021-04-02] MEDS: methylPREDNISolone sod succ/PF 40mg inj. IV SCH ×2 (00:42→08:09)
[2021-04-02] MEDS: dexmedetomidin/NS 400mcg/100ml 100 ML IV SCH ×3 (01:09→12:29)
[2021-04-02 04:54] LABS: BASOPHILS # (AUTO) 0.1 X10'3 (0-0.2); BASOPHILS % (AUTO) 0.6 % (0-1); EOSINOPHILS # (AUTO) 0.1 X10'3 (0-0.9); EOSINOPHILS % (AUTO) 0.4 % (0-6); HEMATOCRIT 45.5 % (42.0-52.0); HEMOGLOBIN 15.2 g/dl (14.0-17.9); LYMPHOCYTES # (AUTO) 0.4 X10'3 (1.1-4.8); LYMPHOCYTES % (AUTO) 2.4 % (21-51); MEAN CORPUSCULAR HEMOGLOBIN 28.6 PG (27.0-31.0); MEAN CORPUSCULAR HGB CONC 33.5 g/dL (33.0-36.5); MEAN CORPUSCULAR VOLUME 85.4 FL (78-98); MEAN PLATELET VOLUME 7.2 FL (7.4-10.4); MONOCYTES # (AUTO) 0.5 X10'3 (0-0.9); MONOCYTES % (AUTO) 3.6 % (2-12); NEUTROPHILS # (AUTO) 14.1 X10'3 (1.8-7.7); PLATELET COUNT 331 X10'3 (140-440); RED BLOOD COUNT 5.33 X10'6 (4.70-6.10); RED CELL DISTRIBUTION WIDTH 14.3 % (11.5-14.5); WHITE BLOOD COUNT 15.1 X10'3 (4.5-11.0)
[2021-04-02] MEDS ORDERED: morphine 4 MG/ML inj SYRINge ONE (05:03)
[2021-04-02] MEDS ORDERED: morphine 2 MG/ML inj. syringe IV ONE (05:05)
[2021-04-02 05:12] LABS: ALANINE AMINOTRANSFERASE 28 U/L (12-78); ALBUMIN 1.8 G/DL (3.4-5.0); ALBUMIN/GLOBULIN RATIO 0.4 (1.1-1.5); ALKALINE PHOSPHATASE 187 IU/L (46-116); ANION GAP 5 (8-16); ASPARTATE AMINO TRANSFERASE 35 U/L (10-37); BILIRUBIN,TOTAL 0.5 MG/DL (0.1-1.0); BLOOD UREA NITROGEN 24 MG/DL (7-18); BUN/CREATININE RATIO 31.2 (5.4-32.0); C-REACTIVE PROTEIN 6.24 MG/DL (0.0-0.5); CALCIUM 8.4 MG/DL (8.5-10.1); CHLORIDE 102 MMOL/L (99-107); CREATININE 0.77 MG/DL (0.60-1.10); GLUCOSE 143 MG/DL (70-104); POTASSIUM 4.7 MMOL/L (3.5-5.1); SODIUM 135 MMOL/L (135-145); TOTAL CARBON DIOXIDE 27.6 MMOL/L (24-32); TOTAL PROTEIN 6.7 G/DL (6.4-8.2); TROPONIN I 0.04 NG/ML (0.0-0.05); eGFR > 90 ML/MIN
--- NOTE | 2021-04-02 06:02 | NUR ---
0435-patient complaining of chest pain, tachypneic into the 40s ,diaphoretic, anxious, cool to the touch. EKG obtained. AM labs drawn stat. SL Nitro given, Morphine IV given, titrating Precedex for anxiety. Dr. Rodriguez notified. Orders put in by 0602: patient states chest pain relieved w/Nitro and Morphine. RR 27, Sats: 88 on 100% FiO2 on BiPap. Problems reprioritized. Patient report given, questions answered & plan of care reviewed with Jonah DELACRUZ.
[2021-04-02 07:05] LABS: D-DIMER 5.69 MG/L FEU (0-0.50)
[2021-04-02] MEDS: carVEDilol 3.125mg tablet PO SCH (07:30)
[2021-04-02] MEDS: insulin glargine (Lantus) pen - multi-dose SQ SCH (08:00)
[2021-04-02] MEDS: K and/or MAG REPLACEMENT MC SCH ×2 (08:00→20:00)
[2021-04-02] MEDS: levoFLOXACIN-Levaquin 750MG/D5 150 ML IV SCH (08:07)
[2021-04-02] MEDS: enoxaparin 30mg/0.3ml syringe SUBCUT SCH (08:08)
[2021-04-02] MEDS: enoxaparin 80mg/0.8ml syringe SUBCUT SCH ×2 (08:09→20:00)
[2021-04-02] MEDS: lactobacillus rhamnosus 10,000 MMU CELLS/CAPSULE PO SCH ×2 (08:10→20:00)
[2021-04-02] MEDS: docusate sod 100mg capsule PO SCH ×2 (08:10→20:00)
[2021-04-02] MEDS: ESCITALOPRAM OXALATE 5 MG TABLET PO SCH (08:11)
[2021-04-02] MEDS: lisinopril 20mg tablet PO SCH (08:12)
[2021-04-02] MEDS: aspirin 325mg tablet, delayed-release (Ecotrin) PO SCH (08:12)
[2021-04-02] MEDS: amLODIPine 5mg tablet PO SCH (08:13)
[2021-04-02 09:35] LABS: ABG BASE EXCESS -0.3 mmol/L (-2.0-2.0); ABG HCO3 23.3 mmol/L (22.0-26.0); ABG OXYGEN SATURATION 84.7 % (94-97); ABG PCO2 (T) 33.6 mmHg (35.0-48.0); ABG PO2 (T) 45.4 mmHg (75.0-100.0); ALLEN'S TEST POSITIVE; FCOHb 0.5 % (0.0-3.9); FMetHb 0.2 % (0.0-1.5); FO2Hb 84.1 % (94-97)
--- NOTE | 2021-04-02 13:55 | NUR ---
Reassessment: Pt with worsening saturations transferred to critical care, currently on BiPAP per MD note. Pt continues with active diet however documented as NPO in EMR. Pt previously eating well with 75-100% PO intake however down to 0-25% PO intake at lunch and dinner 04/01. Pt would benefit from EN if unable to take PO intake d/t oxygen requirements. Noted pt with a low Mikel of 12, no edema or wounds per physical assessment. LB 03/29, receiving routine bowel care. Will continue to follow closely. Recommendations: 1. Continue SB6/CCHO/Heart Healthy diet as tolerated per ST recs 2. Initiate nutrition support if pt unable to tolerate PO intake r/t oxygen requirements 3. Monitor trends in PO intake and need for ONS/additional protein IF pt to continue with PO diet 4. Routine bowel care 5. Scaled wt this admit, subsequent weekly wts Addendum: 04/02/21 at [address] Amended: Links added.
[2021-04-02] MEDS: dextrose 5%-water 1,000 ML IV SCH (14:00)
[2021-04-02] MEDS: insulin Lispro (HumaLOG) vial - multi-dose SQ SCH (15:39)
[2021-04-02] MEDS: atorvastatin 20mg tablet PO SCH (21:00)
[2021-04-03] VITALS (14 sets, daily range): BP systolic 115–145; BP diastolic 67–95
[2021-04-03 06:07] LABS: BASOPHILS % (AUTO) 0.1 % (0-1); EOSINOPHILS % (AUTO) 0.1 % (0-6); HEMATOCRIT 44.5 % (42.0-52.0); HEMOGLOBIN 14.9 g/dl (14.0-17.9); LYMPHOCYTES # (AUTO) 0.4 X10'3 (1.1-4.8); LYMPHOCYTES % (AUTO) 2.3 % (21-51); MEAN CORPUSCULAR HEMOGLOBIN 28.4 PG (27.0-31.0); MEAN CORPUSCULAR HGB CONC 33.5 g/dL (33.0-36.5); MEAN CORPUSCULAR VOLUME 84.9 FL (78-98); MEAN PLATELET VOLUME 7.5 FL (7.4-10.4); MONOCYTES # (AUTO) 0.4 X10'3 (0-0.9); MONOCYTES % (AUTO) 2.5 % (2-12); NEUTROPHILS # (AUTO) 15.1 X10'3 (1.8-7.7); PLATELET COUNT 300 X10'3 (140-440); RED BLOOD COUNT 5.24 X10'6 (4.70-6.10); RED CELL DISTRIBUTION WIDTH 14.1 % (11.5-14.5); WHITE BLOOD COUNT 15.9 X10'3 (4.5-11.0)
[2021-04-03 06:28] LABS: ALANINE AMINOTRANSFERASE 19 U/L (12-78); ALBUMIN 1.6 G/DL (3.4-5.0); ALBUMIN/GLOBULIN RATIO 0.3 (1.1-1.5); ALKALINE PHOSPHATASE 226 IU/L (46-116); ANION GAP 5 (8-16); ASPARTATE AMINO TRANSFERASE 24 U/L (10-37); BILIRUBIN,TOTAL 0.6 MG/DL (0.1-1.0); BLOOD UREA NITROGEN 30 MG/DL (7-18); BUN/CREATININE RATIO 34.5 (5.4-32.0); C-REACTIVE PROTEIN 2.88 MG/DL (0.0-0.5); CALCIUM 8.1 MG/DL (8.5-10.1); CHLORIDE 102 MMOL/L (99-107); CREATININE 0.87 MG/DL (0.60-1.10); GLUCOSE 258 MG/DL (70-104); POTASSIUM 4.8 MMOL/L (3.5-5.1); SODIUM 131 MMOL/L (135-145); TOTAL CARBON DIOXIDE 23.9 MMOL/L (24-32); TOTAL PROTEIN 6.3 G/DL (6.4-8.2); eGFR > 90 ML/MIN
[2021-04-03 06:53] LABS: D-DIMER 7.01 MG/L FEU (0-0.50)
[2021-04-03] MEDS: carVEDilol 3.125mg tablet PO SCH ×2 (08:00→17:28)
[2021-04-03] MEDS: K and/or MAG REPLACEMENT MC SCH ×2 (08:00→20:00)
[2021-04-03] MEDS: enoxaparin 80mg/0.8ml syringe SUBCUT SCH ×2 (08:24→08:52)
[2021-04-03] MEDS: ESCITALOPRAM OXALATE 5 MG TABLET PO SCH (08:30)
[2021-04-03] MEDS: enoxaparin 30mg/0.3ml syringe SUBCUT SCH ×3 (08:30→21:19)
[2021-04-03] MEDS: aspirin 325mg tablet, delayed-release (Ecotrin) PO SCH (08:30)
[2021-04-03] MEDS: docusate sod 100mg capsule PO SCH ×2 (08:30→20:00)
[2021-04-03] MEDS: lisinopril 20mg tablet PO SCH (08:33)
[2021-04-03] MEDS: pantoprazole 40 MG vial IV SCH ×2 (08:33→08:51)
[2021-04-03] MEDS: lactobacillus rhamnosus 10,000 MMU CELLS/CAPSULE PO SCH ×2 (08:49→20:00)
[2021-04-03] MEDS: methylPREDNISolone sod succ 125mg/2ml vial IV SCH ×3 (08:51→16:27)
[2021-04-03] MEDS: amLODIPine 5mg tablet PO SCH (08:52)
[2021-04-03] MEDS: insulin Lispro (HumaLOG) vial - multi-dose SQ SCH (09:05)
--- NOTE | 2021-04-03 11:44 | NUR ---
TPN consult: Per MD pt continues on BiPAP and pt to be NPO and start TPN. MD reports pt with a PICC in place. TPN recommendations below have been d/w clinical pharmacist. Will continue to follow closely. Recommendations: 1. Continuous TPN per MD using 2:1 Clinimix-E 10/23 with goal rate of 100 mL/hr with additional 100 mL 20% intralipids to run at 8.33 mL/hr for 12 hours/day. In total to provide 2500 mL total volume/day, 2312 kcal, 120 g AA, 480 g dextrose (3.03 mg/kg/min dext load), and 20 g lipids 2. Prealbumin and TG q Tuesday/ 3. Daily scaled weights 4. F/u BSS with ST prior to PO diet advancement, previously on SB6/CCHO/Heart Healthy diet per ST recs 5. Routine bowel care Addendum: 04/03/21 at [address] Amended: Links added.
[2021-04-03] MEDS ORDERED: Dextrose 10%-water IV solution 1,000 ML IV PRN (12:35)
[2021-04-03] MEDS ORDERED: magnesium 4gm in 100ml NS 100 ML IV PRN (12:35)
[2021-04-03] MEDS ORDERED: magnesium 2GM in 50ml NS 50 ML IV PRN (12:35)
[2021-04-03] MEDS ORDERED: magnesium Cl slow-release 64mg tablet PO PRN (12:35)
[2021-04-03] MEDS ORDERED: MVI, adult No.4 with vit. K 10 ML in dextrose 5% water 500ml 490 ML IV SCH ×4 (13:04→14:00)
[2021-04-03 13:05] LABS: PHOSPHORUS 3.4 MG/DL (2.3-4.5); PREALBUMIN 13.9 MG/DL (19-36); TRIGLYCERIDES 183 MG/DL (20-135)
[2021-04-03] MEDS: dexmedetomidin/NS 400mcg/100ml 100 ML IV SCH ×4 (14:52→23:45)
--- NOTE | 2021-04-03 15:40 | NUR ---
PT MASK IS XL FULL
[2021-04-03] MEDS: dextrose 5%-water 1,000 ML IV SCH (16:16)
[2021-04-03] MEDS ORDERED: ZINC/COPPER/MANGANESE/SELENIUM 1 ML, chromic chloride inj. 10 MCG in AA 5 %/CALCIUM/LYT... IV SCH (17:00)
[2021-04-03] MEDS ORDERED: fat emulsion 20% inj. 100 ML IV SCH (20:00)
[2021-04-03] MEDS: atorvastatin 20mg tablet PO SCH (21:00)
[2021-04-03] MEDS: insulin regular, human U-100 3ml vial - multi-dose SQ SCH (23:19)
[2021-04-03] MEDS ORDERED: morphine 4 MG/ML inj SYRINge ONE (23:31)
[2021-04-03] MEDS ORDERED: morphine 2 MG/ML inj. syringe IV ONE (23:45)
--- NOTE | 2021-04-03 23:48 | NUR ---
Pt with high anxiety, despite precedex gtt; c/o severe SOB, pulling off bipap; dr. Rodriguez called, pt given 2mg IV morphine for air hunger; pt less anxious but sats still low 78-80%
[2021-04-04] VITALS (22 sets, daily range): BP systolic 82–226; BP diastolic 39–144
[2021-04-04] MEDS: methylPREDNISolone sod succ 125mg/2ml vial IV SCH ×2 (00:20→07:47)
--- NOTE | 2021-04-04 00:30 | NUR ---
Spoke with patient regarding intubation, pt verbally agreed to intubation.
[2021-04-04] MEDS ORDERED: rocuronium 10mg/ml inj IV ONE ×2 (00:55→03:25)
[2021-04-04] MEDS ORDERED: etomidate 2mg/ml inj. IV ONE (00:55)
--- NOTE | 2021-04-04 01:00 | NUR ---
Spoke with pt at length tonight regarding possiblity of needing to be intubated due to increased resp failure; initially unable to get clear answer from the patient whether he would want to be intubated or not; he kept saying "he wants to go home, he wants to get better, he wants to see his family". Previously, when pt first transferred to CICU, pt refusing to be intubated, but now clearly requesting anything to help him breath better; pt's nurseMitzy also spoke with pt and pt clearly requesting "breathing tube"; Dr. Hall from ER intubated pt w/o problems; OG and FC placed; xray for confirmation of ETT; attempted phone call to but no answer.
[2021-04-04] MEDS: FENTANYL-0.9 % NACL/PF 100 ML IV PRN ×2 (01:18→05:32)
[2021-04-04] MEDS: propofol 1000mg/100ml bottle 100 ML IV SCH ×2 (01:18→05:32)
[2021-04-04 01:21] LABS: ABG BASE EXCESS -8.5 mmol/L (-2.0-2.0); ABG HCO3 22.1 mmol/L (22.0-26.0); ABG OXYGEN SATURATION 75.5 % (94-97); ABG PCO2 (T) 68.7 mmHg (35.0-48.0); ABG PO2 (T) 54.2 mmHg (75.0-100.0); ALLEN'S TEST POSITIVE; FCOHb 0.4 % (0.0-3.9); FMetHb 0.4 % (0.0-1.5); FO2Hb 74.9 % (94-97); PATIENT TEMPERATURE 37.7; PEEP 14 cm H2O; RESPIRATORY RATE 24 b/min; TIDAL VOLUME 450 mL; TOTAL HEMOGLOBIN 17.6 G/dl (14.0-18.0)
[2021-04-04] MEDS ORDERED: CISatracurium besylate inj. 100 MG in normal saline 100ml IV soln 90 ML IV PRN (03:25)
--- NOTE | 2021-04-04 03:50 | NUR ---
Attempt to call , no answer.
[2021-04-04 04:00] LABS: BASOPHILS # (AUTO) 0.2 X10'3 (0-0.2); BASOPHILS % (AUTO) 0.5 % (0-1); EOSINOPHILS % (AUTO) 0.1 % (0-6); HEMATOCRIT 44.4 % (42.0-52.0); HEMOGLOBIN 14.7 g/dl (14.0-17.9); LYMPHOCYTES # (AUTO) 0.4 X10'3 (1.1-4.8); MEAN CORPUSCULAR HEMOGLOBIN 28.3 PG (27.0-31.0); MEAN CORPUSCULAR HGB CONC 33.2 g/dL (33.0-36.5); MEAN CORPUSCULAR VOLUME 85.2 FL (78-98); MEAN PLATELET VOLUME 7.7 FL (7.4-10.4); MONOCYTES # (AUTO) 3.3 X10'3 (0-0.9); MONOCYTES % (AUTO) 8.2 % (2-12); NEUTROPHILS # (AUTO) 36.2 X10'3 (1.8-7.7); NEUTROPHILS % (AUTO) 90.2 % (42-75); PLATELET COUNT 489 X10'3 (140-440); RED BLOOD COUNT 5.21 X10'6 (4.70-6.10); RED CELL DISTRIBUTION WIDTH 14.1 % (11.5-14.5)
[2021-04-04 04:03] LABS: WHITE BLOOD COUNT 40.1 X10'3 (4.5-11.0)
[2021-04-04 04:08] LABS: ALANINE AMINOTRANSFERASE 40 U/L (12-78); ALBUMIN 1.8 G/DL (3.4-5.0); ALBUMIN/GLOBULIN RATIO 0.4 (1.1-1.5); ALKALINE PHOSPHATASE 347 IU/L (46-116); ANION GAP 12 (8-16); ASPARTATE AMINO TRANSFERASE 41 U/L (10-37); BILIRUBIN,TOTAL 0.6 MG/DL (0.1-1.0); BLOOD UREA NITROGEN 36 MG/DL (7-18); BUN/CREATININE RATIO 31.3 (5.4-32.0); CALCIUM 7.6 MG/DL (8.5-10.1); CHLORIDE 103 MMOL/L (99-107); CREATININE 1.15 MG/DL (0.60-1.10); GLUCOSE 376 MG/DL (70-104); PHOSPHORUS 6.4 MG/DL (2.3-4.5); POTASSIUM 4.6 MMOL/L (3.5-5.1); SODIUM 137 MMOL/L (135-145); TOTAL CARBON DIOXIDE 21.7 MMOL/L (24-32); TOTAL PROTEIN 6.3 G/DL (6.4-8.2); eGFR 68 ML/MIN
[2021-04-04] MEDS: NORepinephrine 8mg/ 250ml NS 250 ML IV SCH ×2 (04:15→05:48)
[2021-04-04 04:35] LABS: ANISOCYTOSIS FEW; PLATELET ESTIMATE INCREASED; TOTAL CELLS COUNTED 100
[2021-04-04 04:36] LABS: BURR CELLS 1+; HYPERSEGMENTED NEUTROPHILS 1+; POIKILOCYTOSIS FEW; SMUDGE CELLS 1+
[2021-04-04 04:49] LABS: ABG BASE EXCESS -12.1 mmol/L (-2.0-2.0); ABG HCO3 19.9 mmol/L (22.0-26.0); ABG OXYGEN SATURATION 69.8 % (94-97); ABG PCO2 (T) 76.2 mmHg (35.0-48.0); ABG PO2 (T) 52.9 mmHg (75.0-100.0); FCOHb 0.7 % (0.0-3.9); FMetHb 0.3 % (0.0-1.5); FO2Hb 69.1 % (94-97); PEEP 16 cm H2O; RESPIRATORY RATE 28 b/min; TIDAL VOLUME 450 mL; TOTAL HEMOGLOBIN 16.7 G/dl (14.0-18.0)
[2021-04-04] MEDS: insulin regular, human U-100 3ml vial - multi-dose SQ SCH (04:51)
[2021-04-04] MEDS ORDERED: midazolam 100mg in NS 100ml 100 ML IV PRN (04:55)
[2021-04-04] MEDS ORDERED: sodium bicarbonate (8.4%) 1 mEq/ml syringe ONE ×3 (04:56→10:00)
[2021-04-04] MEDS: dextrose 5%-water 1,000 ML IV SCH (06:00)
--- NOTE | 2021-04-04 06:25 | NUR ---
Spoke with pt's on phone, updates given regarding pt's current intubation status.
[2021-04-04] MEDS: carVEDilol 3.125mg tablet PO SCH (07:05)
[2021-04-04] MEDS: amLODIPine 5mg tablet PO SCH (07:05)
--- NOTE | 2021-04-04 07:30 | NUR ---
Spoke with on the phone regarding patient status, no improvement or changes since last update.
[2021-04-04] MEDS ORDERED: NORepinephrine 32 MG in Normal Saline 250ml IV soln IV SCH (07:40)
[2021-04-04] MEDS: pantoprazole 40 MG vial IV SCH (07:46)
[2021-04-04] MEDS: enoxaparin 30mg/0.3ml syringe SUBCUT SCH (07:47)
[2021-04-04] MEDS: aspirin 325mg tablet, delayed-release (Ecotrin) PO SCH (07:48)
[2021-04-04] MEDS: enoxaparin 80mg/0.8ml syringe SUBCUT SCH (07:48)
[2021-04-04] MEDS: lactobacillus rhamnosus 10,000 MMU CELLS/CAPSULE PO SCH (07:48)
[2021-04-04] MEDS: ESCITALOPRAM OXALATE 5 MG TABLET PO SCH (07:48)
[2021-04-04] MEDS: lisinopril 20mg tablet PO SCH (08:00)
[2021-04-04] MEDS ORDERED: piperacillin/tazo 4.5gm/100ml 100 ML IV SCH (08:00)
[2021-04-04] MEDS: docusate sod 100mg capsule PO SCH (08:00)
--- NOTE | 2021-04-04 09:15 | NUR ---
Code blue initiated. Radha spoke with this RN and MD over phone in regards to current situation. Please see code documentation for details. agreed with MD over phone to change code status from full code to DNR at this time.
[2021-04-04] MEDS ORDERED: epiNEPHrine 1 mg/ml 30ml MDV ONE (09:29)
[2021-04-04] MEDS ORDERED: sodium bicarbonate (8.4%) inj. 100 MEQ in dextrose 5%-water 1,000 ML IV SCH (09:35)
[2021-04-04] MEDS ORDERED: epiNEPHrine 10 MG in NS 250ml IV SOLUTION IV SCH (09:35)
--- NOTE | 2021-04-04 10:47 | NUR ---
RN IS TO DOCUMENT YES TO ALL APPLICABLE AREAS Pronouncement of : yes 1. Time Physician Notified: 1035 2. Date of : 04/04/2021 3. Time of : 103 4. DNR/Withdraw life support documented: Yes 5. Monitor strip has been placed on chart: yes 6. Assessment process is of one-minute duration and includes following criteria: a) Patient is unresponsive to all stimuli: yes b) Pupils fixed and non-reactive: yes c) Auscultation of precordium reveals absence of heart tones: yes d) Auscultation of lungs reveals absence of breath sounds: yes e) Absence of blood pressure / all vital signs: yes f) QRS complexes are not present on monitor / EKG strip: yes g) Pacer spikes without capture: n/a 4. Comments:
[2021-04-05] MEDS ORDERED: mineral oil/petrolatum ophthal oint EACHEYE SCH (02:00)
== END 2021-04-04 10:33 | DRG 208 ==
LOC: ER 20:59 → ED HOLD 23:48 → ORTHO 4S 03-26 00:53 → CICU 2S 04-01 17:02
PROVIDERS: ADMIT Internal Medicine; ATTEND Surgery Surgical Critical Care
PROC: 5A09357 Assistance with Respiratory Ventilation, Less than 24 Consecutive Hours, Continuous Positive Airway Pressure (ICD-10-PCS; 2021-03-25)
PROC: 5A0935A Assistance with Respiratory Ventilation, Less than 24 Consecutive Hours, High Flow/Velocity Cannula (ICD-10-PCS; 2021-03-26)
PROC: 5A09357 Assistance with Respiratory Ventilation, Less than 24 Consecutive Hours, Continuous Positive Airway Pressure (ICD-10-PCS; 2021-03-27)
PROC: 5A0935A Assistance with Respiratory Ventilation, Less than 24 Consecutive Hours, High Flow/Velocity Cannula (ICD-10-PCS; 2021-03-27)
PROC: 5A0935A Assistance with Respiratory Ventilation, Less than 24 Consecutive Hours, High Flow/Velocity Cannula (ICD-10-PCS; 2021-03-28)
PROC: 5A09357 Assistance with Respiratory Ventilation, Less than 24 Consecutive Hours, Continuous Positive Airway Pressure (ICD-10-PCS; 2021-03-29)
PROC: 5A0935A Assistance with Respiratory Ventilation, Less than 24 Consecutive Hours, High Flow/Velocity Cannula (ICD-10-PCS; 2021-03-29)
PROC: 5A0935A Assistance with Respiratory Ventilation, Less than 24 Consecutive Hours, High Flow/Velocity Cannula (ICD-10-PCS; 2021-03-30)
PROC: 5A09357 Assistance with Respiratory Ventilation, Less than 24 Consecutive Hours, Continuous Positive Airway Pressure (ICD-10-PCS; 2021-03-31)
PROC: 5A0935A Assistance with Respiratory Ventilation, Less than 24 Consecutive Hours, High Flow/Velocity Cannula (ICD-10-PCS; 2021-03-31)
PROC: 5A09457 Assistance with Respiratory Ventilation, 24-96 Consecutive Hours, Continuous Positive Airway Pressure (ICD-10-PCS; 2021-04-01)
PROC: 5A0935A Assistance with Respiratory Ventilation, Less than 24 Consecutive Hours, High Flow/Velocity Cannula (ICD-10-PCS; 2021-04-01)
PROC: 02HV33Z Insertion of Infusion Device into Superior Vena Cava, Percutaneous Approach (ICD-10-PCS; 2021-04-03)
PROC: B548ZZA Ultrasonography of Superior Vena Cava, Guidance (ICD-10-PCS; 2021-04-03)
PROC: 5A1935Z Respiratory Ventilation, Less than 24 Consecutive Hours (ICD-10-PCS; principal; 2021-04-04)
PROC: 0BH17EZ Insertion of Endotracheal Airway into Trachea, Via Natural or Artificial Opening (ICD-10-PCS; 2021-04-04)
PROC: 5A12012 Performance of Cardiac Output, Single, Manual (ICD-10-PCS; 2021-04-04)
PROC: 0D9670Z Drainage of Stomach with Drainage Device, Via Natural or Artificial Opening (ICD-10-PCS; 2021-04-04)
DX: U07.1 COVID-19 (principal); J12.82 Pneumonia due to coronavirus disease 2019; J80 Acute respiratory distress syndrome; R45.851 Suicidal ideations; E11.65 Type 2 diabetes mellitus with hyperglycemia; F41.8 Other specified anxiety disorders; E78.5 Hyperlipidemia, unspecified; G89.29 Other chronic pain; I10 Essential (primary) hypertension; Z66 Do not resuscitate; E66.01 Morbid (severe) obesity due to excess calories; Z68.32 Body mass index [BMI] 32.0-32.9, adult; Z79.4 Long term (current) use of insulin; Z86.73 Personal history of transient ischemic attack (TIA), and cerebral infarction without residual deficits; Z87.891 Personal history of nicotine dependence; Z99.81 Dependence on supplemental oxygen
CPT/HCPCS: 36415; 36573; 36600; 71045; 74018; 80048; 80053; 81001; 82803; 82948; 83036; 83735; 84100; 84134; 84145; 84478; 84484; 85007; 85018; 85025; 85379; 86140; 87040; 87070; 87077; 87081; 87186; 92508; 92616; 92950; 93005; 93306; 93970; 94002; 94640; 94660; 94760; 94799; 96374; 99285; C9113; G0378; J0171; J0696; J1650; J1815; J1956; J2270; J2704; J2920; J2930; J3010; J7030; J7050; J7060; J7070; J7120; J8540